=== PATIENT | male | born 1960 | race Caucasian/White ===

== ENCOUNTER 2017-05-05 13:11 | Emergency (ER) | payer OTHER ==
--- NOTE | 2017-05-05 13:53 | ER Document Report ---
ED Medical Screen (RME) - General Chief Complaint: Cough Stated Complaint: THROAT Time Seen by Provider: 05/05/17 13:45 Notes: 57-year-old male patient with history of lung cancer and brain metastases, has had a clear occasionally productive cough with chills off and on runny nose for the past 2 weeks. Initially thought it may be due to allergies associated with a PET. His last chemo was almost 3 weeks ago and is due for a dose in 4 days from now. I have greeted and performed a rapid initial assessment of this patient. A comprehensive ED assessment and evaluation of the patient, analysis of test results and completion of the medical decision making process will be conducted by additional ED providers. TRAVEL OUTSIDE OF THE [place] IN LAST 30 DAYS: No - Related Data Allergies/Adverse Reactions: Penicillins Allergy (Severe, Verified 05/05/17 13:16) Anaphylaxis Bee Stings Allergy (Severe, Uncoded 05/05/17 13:16) Swelling Past Medical History - Social History Chew tobacco use (# tins/day): No Frequency of alcohol use: Social Drug Abuse: None - Past Medical History Cardiac Medical History: Reports: Hx Hypercholesterolemia, Hx Hypertension Denies: Hx Coronary Artery Disease, Hx Heart Attack Pulmonary Medical History: Denies: Hx Asthma, Hx Bronchitis, Hx COPD, Hx Pneumonia Neurological Medical History: Denies: Hx Cerebrovascular Accident, Hx Seizures Renal/ Medical History: Denies: Hx Peritoneal Dialysis Malignancy Medical History: Reports Hx Lung Cancer - Primary with brain metastasis Musculoskeltal Medical History: Reports Hx Arthritis Past Surgical History: Reports: Hx Orthopedic Surgery - ankles and knees - Immunizations Hx Diphtheria, Pertussis, Tetanus Vaccination: Yes - @/2015 Physical Exam - Vital signs Vitals: Temp Pulse Resp BP Pulse Ox 98.2 F 107 H 18 108/79 95 05/05/17 13:17 05/05/17 13:17 05/05/17 13:17 05/05/17 13:17 05/05/17 13:17 Course - Vital Signs Vital signs: Temp Pulse Resp BP Pulse Ox 98.2 F 107 H 18 108/79 95 05/05/17 13:17 05/05/17 13:17 05/05/17 13:17 05/05/17 13:17 05/05/17 13:17
--- NOTE | 2017-05-05 14:15 | ER Document Report ---
ED Respiratory Problem - General Chief Complaint: Cough Stated Complaint: THROAT Time Seen by Provider: 05/05/17 13:45 Notes: The patient is a 57-year-old male, past medical history lung cancer with metastasis to the brain, presents with 2 weeks of dry cough that started after a PET scan. His last chemo was 3 weeks ago and he is due for another dose of chemo in 4 days. Patient denies hemoptysis, nausea, vomiting, leg swelling, chest pain, fevers, headache, rash or abdominal pain. TRAVEL OUTSIDE OF THE [place] IN LAST 30 DAYS: No - Related Data Allergies/Adverse Reactions: Penicillins Allergy (Severe, Verified 05/05/17 13:16) Anaphylaxis Bee Stings Allergy (Severe, Uncoded 05/05/17 13:16) Swelling Past Medical History - General Information source: Patient - Social History Smoking Status: Current Every Day Smoker Chew tobacco use (# tins/day): No Frequency of alcohol use: Social Drug Abuse: None Family History: Reviewed & Not Pertinent - Past Medical History Cardiac Medical History: Reports: Hx Hypercholesterolemia, Hx Hypertension Denies: Hx Coronary Artery Disease, Hx Heart Attack Pulmonary Medical History: Denies: Hx Asthma, Hx Bronchitis, Hx COPD, Hx Pneumonia Neurological Medical History: Denies: Hx Cerebrovascular Accident, Hx Seizures Renal/ Medical History: Denies: Hx Peritoneal Dialysis Malignancy Medical History: Reports Hx Lung Cancer - Primary with brain metastasis Musculoskeltal Medical History: Reports Hx Arthritis Past Surgical History: Reports: Hx Orthopedic Surgery - ankles and knees - Immunizations Hx Diphtheria, Pertussis, Tetanus Vaccination: Yes - @/2016 Review of Systems - Review of Systems Notes: REVIEW OF SYSTEMS: CONSTITUTIONAL: -fevers, -chills EENT: -eye pain, -difficulty swallowing, -nasal congestion CARDIOVASCULAR:-chest pain, -syncope. RESPIRATORY: +cough, -SOB GASTROINTESTINAL: -abdominal pain, - nausea, -vomiting, -diarrhea GENITOURINARY: -dysuria, -hematuria MUSCULOSKELETAL: -back pain, -neck pain SKIN: -rash or skin lesions. HEMATOLOGIC: -easy bruising or bleeding. LYMPHATIC: -swollen, enlarged glands. NEUROLOGICAL: -altered mental status or loss of consciousness, -headache, - neurologic symptoms PSYCHIATRIC: -anxiety, -depression. ALL OTHER SYSTEMS REVIEWED AND NEGATIVE. Physical Exam - Vital signs Vitals: Temp Pulse Resp BP Pulse Ox 98.2 F 107 H 18 108/79 95 05/05/17 13:17 05/05/17 13:17 05/05/17 13:17 05/05/17 13:17 05/05/17 13:17 - Notes Notes: PHYSICAL EXAMINATION: GENERAL: No acute distress. HEAD: Atraumatic, normocephalic. EYES: Pupils equal round and reactive to light, extraocular movements intact, sclera anicteric, conjunctiva are normal. ENT: nares patent, oropharynx clear without exudates. Moist mucous membranes. NECK: Normal range of motion, supple without lymphadenopathy LUNGS: No respiratory distress. Coarse breath sounds in left lower lung. HEART: Regular rate and rhythm without murmurs ABDOMEN: Soft, nontender, normoactive bowel sounds. No guarding, no rebound. No masses appreciated. EXTREMITIES: Normal range of motion, no pitting or edema. No cyanosis. NEUROLOGICAL: Cranial nerves grossly intact. Normal speech, normal gait. Normal sensory and motor exams. PSYCH: Normal mood, normal affect. SKIN: Warm, Dry, normal turgor, no rashes or lesions noted. Course - Re-evaluation Re-evalutation: Patient in no respiratory distress. CT does not show any evidence of PE, aortic dissection or aneurysm or pneumonia. Labs are unremarkable and he is not neutropenic. Suspect cough from his prior radiation and chemo. Will provide codeine, Tessalon Perles, honey and have him follow-up with his oncologist. Given strict return precautions and he understands. - Vital Signs Vital signs: Temp Pulse Resp BP Pulse Ox 98.2 F 107 H 18 108/79 95 05/05/17 13:17 05/05/17 13:17 05/05/17 13:17 05/05/17 13:17 05/05/17 13:17 - Laboratory Result Diagrams: 05/05/17 14:03 05/05/17 14:03 Laboratory results interpreted by me: 05/05/17 05/05/17 05/05/17 14:03 14:03 14:03 MCV 99 H Sodium 133.8 L Chloride 97 L Direct Bilirubin 0.5 H Alkaline Phosphatase 198 H Urine Ketones TRACE H - Diagnostic Test Radiology reviewed: Image reviewed, Reports reviewed Radiology results interpreted by me: CTA Lungs: No PE or thoracic aneurysm. T12 lesion. Discharge - Discharge Clinical Impression: Cough Condition: Stable Disposition: HOME, SELF-CARE Additional Instructions: Take Tylenol with codeine to help with any cough and use Tessalon Perles and honey to help. Follow-up with your Oncologist and bring your CT scan. Cough Suppressant/Expectorant Medication You are to use a cough medication as needed for relief of symptoms. This medicine is a combination of an expectorant (to make the mucous thinner and more easily "coughed up") and a cough suppressant (to reduce the frequency of coughing). The cough-suppressant medicine is related to narcotics. You may experience mild nausea and sleepiness. Some patients who are very sensitive to narcotics may have stomach pain from this medicine. Taking the medicine with food reduces these side effects. Do not drive or work with machinery until you know how this medicine affects you. The expectorant should have no side effects. Iodine-containing expectorants (such as organidin) should not be taken by persons with active thyroid disease unless approved by your doctor. Call the doctor if you develop shortness of breath, hives, rash, itching, lightheadedness, or severe nausea and vomiting. Prescriptions: Acetaminophen with Codeine [Tylenol #3 Tablet] 1 each PO Q4HP PRN #20 tablet PRN Reason: Benzonatate [Tessalon Perle 100 mg Capsule] 100 mg PO Q8HP PRN #40 cap PRN Reason: Referrals: CAR VERDUZCO MD [Primary Care Provider] - Follow up as needed
[2017-05-05 14:26] LABS: ABSOLUTE EOSINOPHILS # (AUTO) 0.1 10^3/uL (0.0-0.6); ABSOLUTE LYMPHOCYTES (AUTO) 1.1 10^3/uL (0.5-4.7); ABSOLUTE NEUT (AUTO) 5.8 10^3/uL (1.7-8.2); BASOPHILS % (AUTO) 0.5 % (0-2); EOSINOPHILS % (AUTO) 0.8 % (0-6); HEMATOCRIT 45.1 % (37.9-51.0); HGB HCT DIFFERENCE -0.1; LYMPHOCYTES % (AUTO) 13.6 % (13-45); MEAN CORPUSCULAR HGB CONC 33.3 g/dL (32.0-36.0); MEAN CORPUSCULAR VOLUME 99 fl (80-97); RED BLOOD COUNT 4.55 10^6/uL (4.35-5.55); RED CELL DISTRIBUTION WIDTH 12.8 % (11.5-14.0); SEGMENTED NEUTROPHILS % (AUTO) 72.1 % (42-78); WHITE BLOOD COUNT 8.1 10^3/uL (4.0-10.5)
[2017-05-05 14:35] LABS: APPEARANCE,URINE SLIGHTLY-CLOUDY; BILIRUBIN,URINE NEGATIVE (NEGATIVE); GLUCOSE, URINE NEGATIVE (NEGATIVE); KETONES,URINE TRACE mg/dL (NEGATIVE); LEUKOCYTE ESTERASE,URINE NEGATIVE (NEGATIVE); NITRITE,URINE NEGATIVE (NEGATIVE); PROTEIN,URINE NEGATIVE (NEGATIVE); URINE SPECIFIC GRAVITY 1.008; UROBILINOGEN,URINE NEGATIVE mg/dL (<2.0)
[2017-05-05 14:36] LABS: ALANINE AMINOTRANSFERASE 50 U/L (21-72); ALBUMIN 3.8 g/dL (3.5-5.0); ALKALINE PHOSPHATASE 198 U/L (38-126); ANION GAP 11 (5-19); ASPARTATE AMINO TRANSFERASE 59 U/L (17-59); BILIRUBIN,DIRECT 0.5 mg/dL (0.0-0.4); BILIRUBIN,TOTAL 0.9 mg/dL (0.2-1.3); BLOOD UREA NITROGEN 15 mg/dL (7-20); CALCIUM 9.3 mg/dL (8.4-10.2); CARBON DIOXIDE 26 mmol/L (22-30); CHLORIDE 97 mmol/L (98-107); CREATININE RESULT 1.16 mg/dL (0.52-1.25); GLUCOSE 76 mg/dL (75-110); POTASSIUM 4.9 mmol/L (3.6-5.0); SODIUM 133.8 mmol/L (137-145); TOTAL PROTEIN 6.8 g/dL (6.3-8.2)
--- NOTE | 2017-05-05 15:25 | RADIOLOGY REPORT (SQ) ---
EXAM DESCRIPTION: CHEST PA/LAT COMPLETED DATE/TIME: 05/05/2017 2:49 pm REASON FOR STUDY: cough, chills, on chemo, lung cancer COMPARISON: CT chest 12/03/2015, 05/10/2016 Chest films 12/04/2015, 05/10/2016 EXAM PARAMETERS: NUMBER OF VIEWS: two views TECHNIQUE: Digital Frontal and Lateral radiographic views of the chest acquired. RADIATION DOSE: NA LIMITATIONS: none FINDINGS: LUNGS AND PLEURA: Since the prior studies, patient has had radiation therapy and chemother apy for lung cancer on the left side. There is left lung volume loss and parenchymal scarring in the perihilar region presumably post thera peutic changes. There is no acute infiltrates. No pleural effusion. No pneumothorax. MEDIASTINUM AND HILAR STRUCTURES: Left perihilar lung parenchymal scarring likely post radiation ther apy. HEART AND VASCULAR STRUCTURES: Heart normal size. No evidence for failure. BONES: No acute findings. HARDWARE: None in the chest. OTHER: No other significant finding. IMPRESSION: No acute infiltrates. TECHNICAL DOCUMENTATION: JOB ID: [id number]- All Rights Reserved
--- NOTE | 2017-05-05 16:43 | RADIOLOGY REPORT (SQ) ---
EXAM DESCRIPTION: CTA CHEST COMPLETED DATE/TIME: 05/05/2017 4:01 pm REASON FOR STUDY: tachycardia, Hx lung cancer, SOB, cough COMPARISON: 05/10/2016, 11/23/2015 CT chest TECHNIQUE: CT scan of the chest performed using helical scanning technique with dynamic intravenous contrast injection. Images reviewed with lung, soft tissue and bone windows. Reconstructed coronal and sagittal MPR images reviewed. Additional 3 dimensional post-processing performed to develop Maximal Intensity Projection images (ID P). All images stored on PACS. All CT scanners at this facility use dose modulation, iterative reconstruction, and/or weight based d osing when appropriate to reduce radiation dose to as low as reasonably achievable (ALARA). [facility]: Dose Right [facility]: CareDose [facility]: Dose Right [facility]: Teradose 4D [facility]: [employer] CONTRAST TYPE AND DOSE: contrast/concentration: Isovue 370.00 mg/ml; Total Contrast Delivered: 69.0 ml; Total Saline Delivered: 80.1 ml RENAL FUNCTION: Creatinine 1.2 RADIATION DOSE: Up-to-date CT equipment and radiation dose reduction techniques were employed. CTDIv ol: 14.3 - 16.5 mGy. DLP: 608 mGy-cm. . LIMITATIONS: None. FINDINGS: LUNGS AND PLEURA: On axial images 85 through 94, patchy airspace disease is present in the left lower lobe worrisome for early or developing pneumonia Bandlike lung parenchymal consolidation and bronchiectasis is present along the left perihilar region from prior radiation therapy. On axial image 52, there are 2 small 1.5 cm lung parenchymal cavities in the left upper lobe in the area of prior tumor. There are several tiny less than 3 mm bilateral lung parenchymal nodules in the periphery which are w orrisome for tiny metastatic nodules. No pleural effusions. No pneumothorax. AORTA AND GREAT VESSELS: No aneurysm or dissection. HEART: No pericardial effusion. PULMONARY ARTERIES: No emboli visualized in the main pulmonary arteries or the segmental branches. HILAR AND MEDIASTINAL STRUCTURES: Left perihilar radiation therapy changes as above. HARDWARE: None in the chest. UPPER ABDOMEN: There is a geographic area of decreased contrast enhancement in the sub- diaphragmatic surface right lobe liver, 11 x 7 cm in size worrisome for metastatic disease. Multiple 2 cm or smal ler nodules are scattered throughout the liver worrisome for metastatic disease. THYROID AND OTHER SOFT TISSUES: No masses. No adenopathy. BONES: New 13 mm lytic lesion in the T12 vertebral body to the right of midline worrisome for metasta tic disease. No T12 compression deformity 3D MIPS: Confirm above findings. OTHER: No other significant finding. IMPRESSION: No CT angio evidence of acute pulmonary emboli or thoracic aortic dissection. Multiple liver lesions worrisome for metastatic disease Lytic lesion in the rightward half of T12, worrisome for bony metastatic disease TECHNICAL DOCUMENTATION: JOB ID: [id number] Quality ID # [id number]: Final reports with documentation of one or more dose reduction techniques (e.g., Au tomated exposure control, adjustment of the mA and/or kV according to patient size, use of iterative reconstruction technique) 2010 [employer]- All Rights Reserved
[2017-05-05] MEDS ORDERED: ACETAMINOPHEN WITH CODEINE #3 TABLET PO ONE (17:04)
[2017-05-05 17:16] VITALS: BP 110/82
== END 2017-05-05 17:22 | disposition home or self-care (01) ==
LOC: ER 13:11
DX: R05 Cough (principal); R07.0 Pain in throat; Z85.118 Personal history of other malignant neoplasm of bronchus and lung; F17.200 Nicotine dependence, unspecified, uncomplicated
CPT/HCPCS: 36415; 71020; 71275; 80053; 81001; 85025; 87040; 99284

== ENCOUNTER → 2017-05-17 | Outpatient (CLI) | payer OTHER ==
--- NOTE | 2017-05-17 14:42 | RADIOLOGY REPORT (SQ) ---
EXAM DESCRIPTION: MRI HEAD COMBO COMPLETED DATE/TIME: 05/17/2017 2:12 pm REASON FOR STUDY: LUNG CA (C34.90) C34.90 MALIGNANT NEOPLASM OF UNSP PART OF UNSP BRONCHUS OR L COMPARISON: CT angio chest 05/05/2017 TECHNIQUE: Multiplanar imaging includes noncontrasted T1, T2, FLAIR, diffusion with ADC map and post gadolinium contrast T1 sequences. Images stored on PACS. CONTRAST TYPE AND DOSE: 15 mL Multihance. RENAL FUNCTION: GFR > 60. LIMITATIONS: None. FINDINGS: ANATOMY: No developmental anomalies. Normal vascular flow voids. Pituitary fossa normal. CSF SPACES: Normal in size and contour. No hemorrhage. CEREBRUM AND POSTERIOR FOSSA: There are multiple enhancing brain parenchymal nodules at the arias-whit e junction throughout the cerebrum and posterior fossa worrisome for metastatic disease. No signific ant vasogenic edema or mass effect. The largest lesions are as follows: Right occipital lobe 1.4 cm Left perisylvian frontal regions 1.1 cm Left anterior frontal 9 mm Internal auditory canals, cerebellopontine angles, mastoids normal. No MR evidence of acute ischemic change, acute intracranial hemorrhage, mass effect, or midline shift. DIFFUSION IMAGING: Negative for acute or subacute infarction. ORBITS: No masses. Globes normal. PARANASAL SINUSES: Minimal fluid in the bilateral ethmoid air cells. OTHER: No other significant finding. IMPRESSION: Multiple brain parenchymal metastatic lesions without superimposed hemorrhage or vasogen ic edema. No significant local mass effect EVIDENCE OF ACUTE STROKE: NO. TECHNICAL DOCUMENTATION: JOB ID: [id number] [employer]- All Rights Reserved
== END ==
LOC: RAD 13:10
PROVIDERS: ATTEND Internal Medicine
DX: C34.90 Malignant neoplasm of unspecified part of unspecified bronchus or lung (principal)
CPT/HCPCS: 70553; A9577

== ENCOUNTER → 2017-05-19 | Outpatient (CLI) | payer OTHER ==
--- NOTE | 2017-05-22 13:29 | RADIOLOGY REPORT (SQ) ---
EXAM DESCRIPTION: PET CT SKULL/THIGH COMPLETED DATE/TIME: 05/19/2017 7:03 pm REASON FOR STUDY: LUNG CA C34.90 MALIGNANT NEOPLASM OF UNSP PART OF UNSP BRONCHUS OR L COMPARISON: PET-CT 11/15/2015 CT-guided lung biopsy 12/03/2015 CT chest 03/28/2016, 05/10/2016, 05/05/2017 RADIONUCLIDE AND DOSE: 9.4 mCi F18 FDG The route of agent administration: Intravenous FASTING BLOOD SUGAR: 94 mg/dl CONTRAST TYPE AND DOSE: No CT contrast given. TECHNIQUE: Blood glucose level was verified. Above dose of FDG was injected intravenously. 2-D seg mented attenuation correction images were obtained from the base of the skull to the midthighs. Nonc ontrast CT images were obtained for attenuation correction and fusion with emission images. CT image s were performed without oral or intravenous contrast and are not sensitive for parenchymal lesions. A series of overlapping emission PET images were obtained. [facility] by the radiologist. Images stored on PACS. LIMITATIONS: None. FINDINGS: HEAD AND NECK: No areas of abnormal metabolic activity in the soft tissues of the head and neck. CHEST: Multiple tiny less than 5 mm lung parenchymal metastatic lesions are present. Heavily. Prior radiation therapy for tumor, there is bandlike scarring along the periphery of the left hilum with S UV ranging up to 4.2 SUV. A dominant recurrent left lung tumor mass is not identified. ABDOMEN AND PELVIS: Large liver mass 12 x 7 cm in size involving the subdiaphragmatic right lobe and left lobe liver, SUV 7.8. Smaller hypermetabolic liver foci are present compatible with metastatic d isease. PROXIMAL LOWER EXTREMITIES: No areas of abnormal metabolic activity in the soft tissues of the lower extremities. BONES: Diffuse increased uptake throughout the skeleton involving bilateral humeri knee, right scapul a, ribs, sternum, thoracic and lumbar spine, bony fell. Index lesions are as follows: SUV T12 verte bral body 5.5. L2 vertebral body uptake SUV 7.2. ADDITIONAL CT FINDINGS: No additional significant findings on the noncontrast CT images. OTHER: Liver background activity 2.2 SUV. Blood pool background activity 1.7 SUV IMPRESSION: Metastatic disease as above TECHNICAL DOCUMENTATION: JOB ID: [id number]- All Rights Reserved
== END ==
LOC: RAD 15:33
PROVIDERS: ATTEND Internal Medicine
DX: C34.90 Malignant neoplasm of unspecified part of unspecified bronchus or lung (principal); R91.1 Solitary pulmonary nodule
CPT/HCPCS: 78815; A9552

== ENCOUNTER 2017-07-30 19:19 | Emergency (ER) | payer OTHER ==
--- NOTE | 2017-07-30 19:43 | ER Document Report ---
ED GI/ - General Chief Complaint: Shortness Of Breath Stated Complaint: SHORTNESS OF BREATH Time Seen by Provider: 07/30/17 19:36 Notes: The patient is a 57-year-old male, past medical history metastatic lung cancer, presents with increasing shortness of breath and abdominal distention. He is supposed to see GI later this week, but his abdominal pain is worsening and the ascites is causing him to become short of breath. Patient has not had a paracentesis yet. He denies fevers, nausea, vomiting, diarrhea, constipation, urinary symptoms, chest pain, rash or headache. TRAVEL OUTSIDE OF THE [place] IN LAST 30 DAYS: No - Related Data Allergies/Adverse Reactions: Penicillins Allergy (Severe, Verified 07/20/17 12:40) Anaphylaxis Bee Stings Allergy (Severe, Uncoded 07/20/17 12:40) Swelling Past Medical History - General Information source: Patient, Relative - Social History Smoking Status: Unknown if Ever Smoked Family History: Reviewed & Not Pertinent Patient has suicidal ideation: No Patient has homicidal ideation: No - Past Medical History Cardiac Medical History: Reports: Hx Hypercholesterolemia, Hx Hypertension Denies: Hx Coronary Artery Disease, Hx Heart Attack Pulmonary Medical History: Denies: Hx Asthma, Hx Bronchitis, Hx COPD, Hx Pneumonia Neurological Medical History: Denies: Hx Cerebrovascular Accident, Hx Seizures Renal/ Medical History: Denies: Hx Peritoneal Dialysis Malignancy Medical History: Reports Hx Lung Cancer - Primary with brain metastasis Musculoskeltal Medical History: Reports Hx Arthritis Past Surgical History: Reports: Hx Orthopedic Surgery - ankles and knees - Immunizations Hx Diphtheria, Pertussis, Tetanus Vaccination: Yes - @/2016 Review of Systems - Review of Systems Notes: REVIEW OF SYSTEMS: CONSTITUTIONAL: -fevers, -chills EENT: -eye pain, -difficulty swallowing, -nasal congestion CARDIOVASCULAR:-chest pain, -syncope. RESPIRATORY: -cough, +SOB GASTROINTESTINAL: +abdominal pain, - nausea, -vomiting, -diarrhea GENITOURINARY: -dysuria, -hematuria MUSCULOSKELETAL: -back pain, -neck pain SKIN: -rash or skin lesions. HEMATOLOGIC: -easy bruising or bleeding. LYMPHATIC: -swollen, enlarged glands. NEUROLOGICAL: -altered mental status or loss of consciousness, -headache, - neurologic symptoms PSYCHIATRIC: -anxiety, -depression. ALL OTHER SYSTEMS REVIEWED AND NEGATIVE. Physical Exam - Vital signs Vitals: Pulse Resp BP Pulse Ox 125 H 44 H 120/92 H 94 07/30/17 19:23 07/30/17 19:23 07/30/17 19:23 07/30/17 19:23 - Notes Notes: PHYSICAL EXAMINATION: GENERAL: Ill-appearing HEAD: Atraumatic, normocephalic. EYES: Pupils equal round and reactive to light, extraocular movements intact, sclera icteric. ENT: nares patent, oropharynx clear without exudates. Moist mucous membranes. NECK: Normal range of motion, supple without lymphadenopathy LUNGS: Tachypnea. HEART: Tachycardia. ABDOMEN: Tense ascites. EXTREMITIES: Normal range of motion, no pitting or edema. No cyanosis. NEUROLOGICAL: Normal sensory and motor exams. Course - Re-evaluation Re-evalutation: Pt with evidence of severe sepsis with a lactate of 8.5 and a leukocytosis. Patient also has renal failure and hyperkalemia with peaked T waves. Bedside ultrasound does not show a large amount of fluid in his abdomen and the risks of paracentesis outweigh any benefits. Spoke to daughter and at bedside about goals of care. Patient is on home hospice and he made it clear that he would not want dialysis. He is okay receiving IV fluids, hyperkalemia treatment and antibiotics. Patient and his family would like to take patient home. This is a valid decision based on the severity of his disease. Patient has home hospice that visits. Will keep his IV in place and send home with IV fluids and p.o. doxycycline. - Vital Signs Vital signs: Temp Pulse Resp BP Pulse Ox 125 H 21 H 122/85 93 07/30/17 19:23 07/30/17 22:01 07/30/17 22:00 07/30/17 22:01 - Laboratory Result Diagrams: 07/30/17 19:30 07/30/17 19:30 Laboratory results interpreted by me: 07/30/17 07/30/17 07/30/17 19:30 19:30 19:30 WBC 12.9 H Hgb 18.0 H Hct 54.0 H MCV 99 H RDW 18.8 H Seg Neuts % (Manual) 79 H Band Neutrophils % 7 H Lymphocytes % (Manual) 8 L Abs Neuts (Manual) 11.1 H PT 17.2 H APTT 36.0 H VBG pH VBG HCO3 Sodium 130.2 L Potassium 6.7 H* Chloride 90 L Carbon Dioxide 14 L Anion Gap 26 H BUN 59 H Creatinine 2.14 H Est GFR ( Amer) 39 L Est GFR (Non-Af Amer) 32 L Lactic Acid Total Bilirubin 13.7 H Direct Bilirubin 12.4 H AST 268 H ALT 234 H Alkaline Phosphatase 1520 H 07/30/17 07/30/17 19:30 19:30 WBC Hgb Hct MCV RDW Seg Neuts % (Manual) Band Neutrophils % Lymphocytes % (Manual) Abs Neuts (Manual) PT APTT VBG pH 7.23 L VBG HCO3 17.2 L Sodium Potassium Chloride Carbon Dioxide Anion Gap BUN Creatinine Est GFR ( Amer) Est GFR (Non-Af Amer) Lactic Acid 8.7 H Total Bilirubin Direct Bilirubin AST ALT Alkaline Phosphatase - Diagnostic Test Radiology reviewed: Image reviewed, Reports reviewed Radiology results interpreted by me: CXR: LLL pneumonia CT A/P: Right lower lobe infiltrate, ascites, left hydronephrosis etiology unclear. No evidence of bowel obstruction. Right kidney normal. Known osseous metastatic disease. Discharge - Discharge Clinical Impression: Hyperkalemia Pneumonia Qualifiers: Pneumonia type: due to unspecified organism Laterality: left Lung location: lower lobe of lung Qualified Code(s): J18.1 - Lobar pneumonia, unspecified organism Condition: Stable Disposition: HOME, SELF-CARE Additional Instructions: You may use 1 L normal saline every 4 hours as needed for comfort. Dispense 6 bags. Continue your pain medications. Prescriptions: Doxycycline Hyclate 100 mg PO BID #14 capsule Referrals: KAMILLA WATTS MD [Primary Care Provider] - Follow up as needed
[2017-07-30 19:54] LABS: PROTHROMBIN TIME 17.2 SEC (11.4-15.4)
[2017-07-30 20:04] LABS: MEAN CORPUSCULAR HEMOGLOBIN 33.2 pg (27.0-33.4); MEAN CORPUSCULAR HGB CONC 33.5 g/dL (32.0-36.0); MEAN CORPUSCULAR VOLUME 99 fl (80-97); RED BLOOD COUNT 5.44 10^6/uL (4.35-5.55); RED CELL DISTRIBUTION WIDTH 18.8 % (11.5-14.0); WHITE BLOOD COUNT 12.9 10^3/uL (4.0-10.5)
[2017-07-30 20:07] LABS: VENOUS BLOOD HCO3 17.2 mmol/L (20-32); VENOUS BLOOD PCO2 42.4 mmHg (35-63); VENOUS BLOOD PH 7.23 (7.30-7.42)
--- NOTE | 2017-07-30 20:20 | RADIOLOGY REPORT (SQ) ---
EXAM DESCRIPTION: CHEST SINGLE VIEW COMPLETED DATE/TIME: 07/30/2017 7:58 pm REASON FOR STUDY: SOB COMPARISON: CT chest 05/05/2017. Radiographs 05/05/2017. NUMBER OF VIEWS: One view. TECHNIQUE: Single frontal radiographic view of the chest acquired. LIMITATIONS: None. FINDINGS: LUNGS AND PLEURA: Density over the left hilum persists. Prior CT shows airspace disease r egionally and this looks very similar to priors. Patchy right basilar airspace disease has also deve loped. No pneumothorax. MEDIASTINUM AND HILAR STRUCTURES: Stable contours, as above. HEART AND VASCULAR STRUCTURES: Heart normal in size. Normal vasculature. BONES: No acute findings. HARDWARE: None in the chest. OTHER: No other significant finding. IMPRESSION: Stable airspace disease about the left hilum. 2. Patchy infiltrate is suggested in the right base, concerning for pneumonia. TECHNICAL DOCUMENTATION: JOB ID: [id number] [employer]- All Rights Reserved
[2017-07-30 20:36] LABS: ALANINE AMINOTRANSFERASE 234 U/L (21-72); ALBUMIN 3.8 g/dL (3.5-5.0); BILIRUBIN,DIRECT 12.4 mg/dL (0.0-0.4); BILIRUBIN,TOTAL 13.7 mg/dL (0.2-1.3); BLOOD UREA NITROGEN 59 mg/dL (7-20); CALCIUM 8.4 mg/dL (8.4-10.2); CARBON DIOXIDE 14 mmol/L (22-30); CHLORIDE 90 mmol/L (98-107); GLUCOSE 89 mg/dL (75-110); SODIUM 130.2 mmol/L (137-145)
[2017-07-30 20:39] LABS: BAND NEUTROPHILS % (MANUAL) 7 % (3-5); BASOPHILS % (MANUAL) 0 % (0-2); EOSINOPHILS % (MANUAL) 0 % (0-6); LYMPHOCYTES % (MANUAL) 8 % (13-45); TOTAL CELLS COUNTED 100
[2017-07-30] MEDS ORDERED: MORPHINE SULFATE 10 MG/ML INJ IV ONE (20:39)
[2017-07-30 20:40] LABS: TOXIC GRANULATION 1+; TOXIC VACUOLATION PRESENT
[2017-07-30 20:42] LABS: CREATININE RESULT 2.14 mg/dL (0.52-1.25)
[2017-07-30] MEDS ORDERED: VANCOMYCIN HCL INJ 1000 MG VIAL IV ONE (20:42)
[2017-07-30 20:44] LABS: ASPARTATE AMINO TRANSFERASE 268 U/L (17-59)
[2017-07-30] MEDS ORDERED: CEFEPIME 1 GM/D5W RTU 1 GM/50 ML RTUPB IV SCH (20:45)
[2017-07-30 20:51] LABS: ANISOCYTOSIS 2+; POLYCHROMASIA 1+
[2017-07-30 21:02] LABS: ALKALINE PHOSPHATASE 1520 U/L (38-126)
[2017-07-30 21:05] LABS: POTASSIUM 6.7 mmol/L (3.6-5.0)
[2017-07-30 21:10] LABS: TOTAL PROTEIN 6.7 g/dL (6.3-8.2)
[2017-07-30 21:17] LABS: ANION GAP 26 (5-19)
[2017-07-30] MEDS ORDERED: SODIUM BICARBONATE 8.4% INJ 50 MEQ/50 ML DISP.SYRIN IV ONE (21:18)
[2017-07-30] MEDS ORDERED: NORMAL SALINE 1000 ML 1,000 ML IV ONE (21:18)
[2017-07-30] MEDS ORDERED: CALCIUM GLUCONATE 1000 MG/10 ML INJ IV ONE (21:18)
[2017-07-30] MEDS ORDERED: INSULIN REG, HUMAN 100 UNIT/ML 3 ML VIAL (PYX) IV ONE (21:19)
[2017-07-30] MEDS ORDERED: DEXTROSE 50%-WATER 25 GM/50 ML DISP.SYRIN IV ONE (21:20)
--- NOTE | 2017-07-30 23:23 | EKG REPORT ---
SEVERITY:- ABNORMAL ECG - SINUS TACHYCARDIA PROBABLE LEFT ATRIAL ABNORMALITY consider hyperkalemia : Confirmed by: Harsh Martinez MD 30-Jul-2017 23:23:28
--- NOTE | 2017-07-30 23:30 | RADIOLOGY REPORT (SQ) ---
EXAM DESCRIPTION: CT ABD/PELVIS NO ORAL OR IV COMPLETED DATE/TIME: 07/30/2017 11:08 pm REASON FOR STUDY: diffuse abdominal pain, N/V, Hx of cancer COMPARISON: 05/19/2017 PET-CT. TECHNIQUE: CT scan of the abdomen and pelvis performed without intravenous or oral contrast. Images reviewed with lung, soft tissue, and bone windows. Reconstructed coronal and sagittal MPR images revi ewed. All images stored on PACS. All CT scanners at this facility use dose modulation, iterative reconstruction, and/or weight based d osing when appropriate to reduce radiation dose to as low as reasonably achievable (ALARA). [facility]: Dose Right [facility]: CareDose [facility]: Dose Right [facility]: Teradose 4D [facility]: [employer] RADIATION DOSE: Up-to-date CT equipment and radiation dose reduction techniques were employed. CTDIv ol: 15.8 mGy. DLP: 891 mGy-cm.mGy. LIMITATIONS: None. FINDINGS: LOWER CHEST: Motion artifact. Patchy airspace disease in the right lower lobe has develop ed. Trace right pleural fluid. NON-CONTRASTED LIVER, SPLEEN, ADRENALS: Liver enlarged and mildly heterogeneous. On today's study, d ifficult to define any discrete lesions. Spleen unremarkable. No developing or progressive adrenal mass. PANCREAS: No masses. No peripancreatic inflammatory changes. GALLBLADDER: Dense material in the gallbladder, which is otherwise normal. RIGHT KIDNEY AND URETER: No solid masses. No significant calcification. No hydronephrosis or hydroure ter. LEFT KIDNEY AND URETER: Mild right hydronephrosis. No clear point of obstruction, however. No stone s. AORTA AND RETROPERITONEUM: Atherosclerotic without aneurysm. BOWEL AND PERITONEAL CAVITY: No mechanical bowel obstruction evident. No free air. Moderate lower a bdominal and pelvic ascites. Trace perihepatic fluid. APPENDIX: Normal. PELVIS, BLADDER, AND ABDOMINAL WALL:Normal bladder. Pelvic free fluid as above. BONES: Heterogeneous density. Scattered lucencies in the spine, most conspicuously at T12. OTHER: No other significant finding. IMPRESSION: 1. Right lower lobe infiltrate. 2. Ascites. 3. Left hydronephrosis. Etiology uncle ar. 4. No evidence of bowel obstruction. Right kidney normal. 5. Known osseous metastatic diseas e. TECHNICAL DOCUMENTATION: JOB ID: [id number] Quality ID # [id number]: Final reports with documentation of one or more dose reduction techniques (e.g., Au tomated exposure control, adjustment of the mA and/or kV according to patient size, use of iterative reconstruction technique) 2010 [employer]- All Rights Reserved
[2017-07-31 00:20] VITALS: BP 147/98
== END 2017-07-31 00:05 | disposition home or self-care (01) ==
LOC: ER 19:19
DX: J18.1 Lobar pneumonia, unspecified organism (principal); E87.5 Hyperkalemia; R06.02 Shortness of breath; R14.0 Abdominal distension (gaseous); Z85.118 Personal history of other malignant neoplasm of bronchus and lung
CPT/HCPCS: 93005; 99285; 96375; 96365; 36415; 87040; 82962; 82140; 85025; 85610; 85730; 87077; 80053; 82803; 83605; 71010; 74176; 93010; J0610; J3490 ×2; J2270; J1815; J7030; J3370; J0692